=== PATIENT | female | born 1950 | race African-American/Black ===

== ENCOUNTER 2019-05-14 12:25 | Emergency (ER) | payer BC ==
--- NOTE | 2019-05-14 13:48 | ER ---
Nurse's Notes [facility] Name: Nicole Gimenez Age: 68 yrs Sex: Female : 1950 Arrival Date: 05/14/2019 Time: 12:26 Bed 11 Private MD: Gualberto Johns Diagnosis: Impacted cerumen, right ear Presentation: 05/14 12:36 Presenting complaint: Patient states: right ear pain for a couple days. Transition of la1 care: patient was not received from another setting of care. Onset of symptoms was May 14, 2019. Risk Assessment: Do you want to hurt yourself or someone else? Patient reports no desire to harm self or others. Initial Sepsis Screen: Does the patient meet any 2 criteria? No. Patient's initial sepsis screen is negative. Does the patient have a suspected source of infection? No. Patient's initial sepsis screen is negative. Care prior to arrival: None. 12:36 Method Of Arrival: Ambulatory la1 12:36 Acuity: OLEGARIO 4 la1 Historical: - Allergies: 12:36 Codeine; la1 12:36 Iodinated Contrast Media - IV Dye; la1 - PMHx: 12:36 High Cholesterol; Hypertension; la1 - Immunization history:: Adult Immunizations up to date. - Social history:: Smoking status: Patient/guardian denies using tobacco. - Ebola Screening: : No symptoms or risks identified at this time. Screenin:38 Abuse screen: Denies threats or abuse. Nutritional screening: No deficits noted. la1 Tuberculosis screening: No symptoms or risk factors identified. Fall Risk None identified. Assessment: 12:37 General: Appears in no apparent distress. Behavior is calm, cooperative. Pain: la1 Complains of pain in right ear. Neuro: Level of Consciousness is awake, alert, obeys commands, Oriented to person, place, time, situation. Cardiovascular: Capillary refill < 3 seconds Patient's skin is warm and dry. Respiratory: Airway is patent Respiratory effort is even, unlabored, Respiratory pattern is regular, symmetrical. GI: No signs and/or symptoms were reported involving the gastrointestinal system. : No signs and/or symptoms were reported regarding the genitourinary system. EENT: Pinna with no deformity noted on left ear and right ear. Vital Signs: 12:36 BP 155 / 61; Pulse 74; Resp 16; Temp 98.7; Pulse Ox 98% on R/A; Weight 70.76 kg; Height la1 4 ft. 11 in. (149.86 cm); 12:36 Body Mass Index 31.51 (70.76 kg, 149.86 cm) la1 ED Course: 12:26 Patient arrived in ED. as 12:26 Gualberto Johns MD is Private Physician. as 12:37 Triage completed. la1 12:37 Arm band placed on left wrist. la1 12:38 Patient has correct armband on for positive identification. la1 12:44 Neto Donaldson PA is PHCP. jr8 12:44 Daniele Pozo MD is Attending Physician. jr8 13:46 Gualberto Johns MD is Referral Physician. jr8 13:55 No provider procedures requiring assistance completed. Patient did not have IV access hb during this emergency room visit. Administered Medications: No medications were administered Outcome: 13:47 Discharge ordered by MD. jr8 13:55 Discharged to home ambulatory. hb 13:55 Condition: stable 13:55 Discharge instructions given to patient, Instructed on discharge instructions, follow up and referral plans. Demonstrated understanding of instructions, follow-up care. 13:55 Patient left the ED. hb Signatures: Kayli Palmer as Neto Donaldson PA PA jr8 Rey John RN RN la1 Risa Geiger RN RN hb
--- NOTE | 2019-05-14 13:48 | EDPHYS ---
Physician Documentation [facility] Name: Nicole Gimenez Age: 68 yrs Sex: Female : 1950 Arrival Date: 05/14/2019 Time: 12:26 Bed 11 Private MD: Gualberto Johns ED Physician Daniele Pozo Historical: - Allergies: 05/14 12:36 Codeine; la1 12:36 Iodinated Contrast Media - IV Dye; la1 - PMHx: 12:36 High Cholesterol; Hypertension; la1 - Immunization history:: Adult Immunizations up to date. - Social history:: Smoking status: Patient/guardian denies using tobacco. - Ebola Screening: : No symptoms or risks identified at this time. Vital Signs: 12:36 BP 155 / 61; Pulse 74; Resp 16; Temp 98.7; Pulse Ox 98% on R/A; Weight 70.76 kg; Height la1 4 ft. 11 in. (149.86 cm); 12:36 Body Mass Index 31.51 (70.76 kg, 149.86 cm) la1 MDM: 13:02 Patient medically screened. jr8 13:46 Data reviewed: vital signs, nurses notes, and as a result, I will discharge patient. jr8 Data interpreted: Pulse oximetry: on room air is 98 %. Interpretation: normal. Counseling: I had a detailed discussion with the patient and/or guardian regarding: the historical points, exam findings, and any diagnostic results supporting the discharge/admit diagnosis, the need for outpatient follow up, a family practitioner, to return to the emergency department if symptoms worsen or persist or if there are any questions or concerns that arise at home. Response to treatment: the patient's symptoms have resolved after treatment. Administered Medications: No medications were administered Disposition: 14:49 Co-signature as Attending Physician, Daniele Pozo MD. rn Disposition: 05/14/19 13:47 Discharged to Home. Impression: Impacted cerumen, right ear. - Condition is Stable. - Discharge Instructions: Earwax Buildup, Adult, Ear Irrigation. - Medication Reconciliation Form, Thank You Letter, Antibiotic Education, Prescription Opioid Use form. - Follow up: Gualberto Johns MD; When: As needed; Reason: Recheck today's complaints, Continuance of care, Re-evaluation by your physician. - Problem is new. - Symptoms are resolved. Signatures: Daniele Pozo MD MD rn Neto Donaldson PA PA jr8 Rey John RN RN la1 Risa Geiger RN RN Corrections: (The following items were deleted from the chart) 13:55 13:47 05/14/2019 13:47 Discharged to Home. Impression: Impacted cerumen, right ear. hb Condition is Stable. Forms are Medication Reconciliation Form, Thank You Letter, Antibiotic Education, Prescription Opioid Use. Follow up: Gualberto Johns; When: As needed; Reason: Recheck today's complaints, Continuance of care, Re-evaluation by your physician. Problem is new. Symptoms are resolved. jr8
[2019-05-14 14:00] VITALS: BP 155/61; TEMP 98.7; O2SAT 98
== END 2019-05-14 13:55 | disposition home or self-care (01) ==
LOC: ER 12:25
DX: H61.21 Impacted cerumen, right ear (principal); Z88.6 Allergy status to analgesic agent; Z91.09 Other allergy status, other than to drugs and biological substances
CPT/HCPCS: 99281

== ENCOUNTER 2025-04-02 03:02 | Emergency (ER) | payer OTHER ==
[2025-04-02] MEDS ORDERED: IBUPROFEN 200 MG TAB PO ONE (03:40)
[2025-04-02] MEDS ORDERED: ACETAMINOPHEN 500 MG TAB ONE (03:40)
--- NOTE | 2025-04-02 06:22 | RAD REPORT ---
EXAM: XR Right Shoulder Complete, 2 or More Views CLINICAL HISTORY: The patient is 74 years old and is Female; PAIN TECHNIQUE: Two views of the right shoulder. COMPARISON: No relevant prior studies available. FINDINGS: Bones/joints: No effusion or significant arthropathy. No acute fracture. No dislocation. Soft tissues: Unremarkable. IMPRESSION: No acute findings in the right shoulder. Electronically signed by: Opal Portillo MD 04/02/2025 06:17 AM CDT RP V2 Due to temporary technical issues with the PACS/[employer] reporting system, reports are being aline d by the in-house radiologist without review as a courtesy to ensure prompt reporting. The interpreting radiologist is fully responsible for the content of the report. Transcribed Date/Time: 04/02/2025 6:21 AM
--- NOTE | 2025-04-02 06:23 | RAD REPORT ---
EXAM: XR Right Humerus, 2 or More Views CLINICAL HISTORY: The patient is 74 years old and is Female; PAIN TECHNIQUE: Two views of the right humerus. COMPARISON: No relevant prior studies available. FINDINGS: Artifacts: External artifact. Bones/joints: No acute fracture or dislocation. Soft tissues: Unremarkable. IMPRESSION: No acute findings in the right humerus. Due to temporary technical issues with the PACS/[employer] reporting system, reports are being aline d by the in-house radiologist without review as a courtesy to ensure prompt reporting. The interpreting radiologist is fully responsible for the content of the report. Transcribed Date/Time: 04/02/2025 6:22 AM
--- NOTE | 2025-04-02 06:37 | ER ---
Nurse's Notes [facility] Name: Nicole Gimenez Age: 74 yrs Sex: Female : 1950 Arrival Date: 04/02/2025 Time: 03:02 Bed 5 Private MD: Diagnosis: Pain in right upper arm Presentation: 04/02 03:15 Chief complaint: Patient states: right arm pain that has been ongoing for 2 weeks. cp4 Coronavirus screen: Client denies travel out of the [place] in the last 14 days. At this time, the client does not indicate any symptoms associated with coronavirus-19. Ebola Screen: Patient negative for fever greater than or equal to 101.5 degrees Fahrenheit, and additional compatible Ebola Virus Disease symptoms Patient denies exposure to infectious person. Patient denies travel to an Ebola-affected area in the 21 days before illness onset. No symptoms or risks identified at this time. Initial Sepsis Screen: Does the patient meet any 2 criteria? HR > 90 bpm. No. Patient's initial sepsis screen is negative. Does the patient have a suspected source of infection? No. Patient's initial sepsis screen is negative. Risk Assessment: Do you want to hurt yourself or someone else? Patient reports no desire to harm self or others. Onset of symptoms was March 19, 2025. 03:15 Method Of Arrival: Ambulatory 4 03:15 Acuity: OLEGARIO 4 cp4 Triage Assessment: 03:16 General: Appears in no apparent distress. uncomfortable, Behavior is calm, cooperative, cp4 appropriate for age. Pain: Complains of pain in right arm Pain does not radiate. Pain currently is 8 out of 10 on a pain scale. EENT: No signs and/or symptoms were reported regarding the EENT system. Neuro: Level of Consciousness is awake, alert, obeys commands, Oriented to person, place, time, situation. Cardiovascular: Patient's skin is warm and dry. Respiratory: Airway is patent Respiratory effort is even, unlabored. GI: No signs and/or symptoms were reported involving the gastrointestinal system. : No signs and/or symptoms were reported regarding the genitourinary system. Derm: No signs and/or symptoms reported regarding the dermatologic system. Musculoskeletal: Reports pain in right arm. Historical: - Allergies: 03:16 Codeine; cp4 03:16 Iodinated Contrast Media - IV Dye; cp4 - PMHx: 03:16 High Cholesterol; Hypertension; Diabetes mellitus; cp4 - Immunization history:: Adult Immunizations up to date. - Infectious Disease History:: Denies. - Social history:: Smoking status: Patient denies any tobacco usage or history of. Screenin:18 [facility] ED Fall Risk Assessment (Adult) History of falling in the last 3 months, cp4 including since admission No falls in past 3 months (0 pts) Confusion or Disorientation No (0 pts) Intoxicated or Sedated No (0 pts) Impaired Gait No (0 pts) Mobility Assist Device Used No (0 pt) Altered Elimination No (0 pt) Score/Fall Risk Level 0 - 2 = Low Risk Oriented to surroundings, Maintained a safe environment, Assessed \T\ reinforced patient's understanding of fall precautions, Hourly rounding (assess needs \T\ fall precautionary measures) done. Abuse screen: Denies threats or abuse. Denies injuries from another. Nutritional screening: No deficits noted. Tuberculosis screening: No symptoms or risk factors identified. Never had TB. Assessment: 03:18 Reassessment: No changes from previously documented assessment. cp4 05:53 Reassessment: Patient appears in no apparent distress at this time. No changes from lg3 previously documented assessment. Patient and/or family updated on plan of care and expected duration. Pain level reassessed. Patient is alert, oriented x 3, equal unlabored respirations, skin warm/dry/pink. Vital Signs: 03:15 BP 191 / 82; Pulse 93; Resp 18; Temp 98.1; Pulse Ox 98% ; Weight 68.95 kg; Height 4 ft. cp4 11 in. ; Pain 8/10; 05:53 BP 188 / 89; Pulse 92; Resp 17 S; Pulse Ox 98% on R/A; lg3 03:15 Body Mass Index 30.70 (68.95 kg, 149.86 cm) cp4 03:15 Pain Scale: Adult cp4 ED Course: 03:06 Patient arrived in ED. mr 03:12 Vinicio Rizvi DO is Attending Physician. tt7 03:16 Triage completed. cp4 03:16 Arm band placed on right wrist. Patient placed in waiting room. cp4 03:18 Bed in low position. Call light in reach. Provided Education on:. cp4 03:18 No provider procedures requiring assistance completed. cp4 03:47 X-ray completed. Portable x-ray completed in exam room. Patient tolerated procedure md2 well. 04:03 XRAY Shoulder RIGHT 2 view In Process Unspecified. EDMS 04:03 XRAY Humerus RIGHT In Process Unspecified. EDMS 04:05 Radiology exam delayed due to called out ultrasound at 0405, call tech states the md2 morning tech will be here at 0630. 06:51 Patient did not have IV access during this emergency room visit. mf3 Administered Medications: 03:45 Drug: Acetaminophen PO 1000 mg PO once Route: PO; cp4 04:34 Follow up: Response: No adverse reaction; Pain is decreased cp4 03:45 Drug: Ibuprofen PO 600 mg PO once Route: PO; cp4 04:34 Follow up: Response: No adverse reaction; Temperature is decreased cp4 06:44 Drug: HYDROcodone-acetaminophen PO 5 mg-325 mg 1 tabs PO once Route: PO; cp4 06:44 Follow up: Response: No adverse reaction; Pain is decreased cp4 Medication: 03:18 VIS not applicable for this client. cp4 Outcome: 06:36 Discharge ordered by . tt7 06:51 Discharged to home with family, 3 06:51 Condition: stable 06:51 Discharge instructions given to patient, Instructed on discharge instructions, follow up and referral plans. Demonstrated understanding of instructions, follow-up care, 06:51 Patient left the ED. 3 Signatures: Dispatcher [employer] EDIN Jeannie Bender, Luz Elena Vogel RN RN 3 Pina Sylvester md2 Joelle De La Rosa cp4 Nelly Lozada RN RN 3 Vinicio Rizvi DO DO tt7
--- NOTE | 2025-04-02 06:37 | EDPHYS ---
Physician Documentation [facility] Name: Nicole Gimenez Age: 74 yrs Sex: Female : 1950 Arrival Date: 04/02/2025 Time: 03:02 Bed 5 Private MD: ED Physician Vinicio Rizvi HPI: 04/02 07:46 This 74 yrs old Black Female presents to ER via Ambulatory with complaints of Arm Pain. tt7 07:46 The patient or guardian complains of pain, that is acute. The complaints affect the tt7 right bicep and right tricep. Context: The problem was sustained at home, resulted from unknown cause. Onset: The symptoms/episode began/occurred gradually, today. Treatment prior to arrival includes: no previous treatment. Modifying factors: The symptoms are alleviated by nothing. the symptoms are aggravated by movement. Associated signs and symptoms: The patient has no apparent associated signs or symptoms. The patient has not experienced similar symptoms in the past. The patient has not recently seen a physician. Historical: - Allergies: 03:16 Codeine; cp4 03:16 Iodinated Contrast Media - IV Dye; cp4 - PMHx: 03:16 High Cholesterol; Hypertension; Diabetes mellitus; cp4 - Immunization history:: Adult Immunizations up to date. - Infectious Disease History:: Denies. - Social history:: Smoking status: Patient denies any tobacco usage or history of. ROS: 07:43 Constitutional: negative for fever. Cardiovascular: negative for chest pain. tt7 Respiratory: negative for shortness of breath. Abdomen/GI: negative for abdominal pain, nausea, vomiting, diarrhea. 07:43 MS/extremity: Positive for pain, Negative for injury or acute deformity, decreased range of motion, paresthesias, warmth, Exam: 07:44 Constitutional: vital signs reviewed, well appearing. Head/Face: normocephalic, tt7 atraumatic. Eyes: no conjunctival injection, anicteric sclerae. ENT: mucus membranes moist. Neck: trachea midline, no JVD, no meningismus. Chest/axilla: normal chest wall appearance and motion, nontender, no crepitus. Cardiovascular: regular rate and rhythm, no murmurs, no rubs, no lower extremity edema. Respiratory: normal respiratory effort, no accessory muscle use, lungs CTAB. Abdomen/GI: Nondistended Back: normal ROM. Skin: warm, dry, intact, normal turgor, normal color, no rash. MS/ Extremity: normal ROM of extremities, no gross deformities, tenderness of the right mid bicep without any erythema, edema, or palpable cordlike structure. Neuro: alert and oriented with appropriate mental status, normal speech, follows commands, no focal neurologic deficits. Psych: appropriate mood and affect. 07:45 MS/ Extremity: 2+ right radial and ulnar pulse, no sensory deficit to the distal right tt7 upper extremity, no motor deficit to the distal right upper extremity Vital Signs: 03:15 BP 191 / 82; Pulse 93; Resp 18; Temp 98.1; Pulse Ox 98% ; Weight 68.95 kg; Height 4 ft. cp4 11 in. ; Pain 8/10; 05:53 BP 188 / 89; Pulse 92; Resp 17 S; Pulse Ox 98% on R/A; lg3 03:15 Body Mass Index 30.70 (68.95 kg, 149.86 cm) cp4 03:15 Pain Scale: Adult cp4 MDM: 03:12 Medical Screening Exam initiated tt7 07:46 Differential diagnosis: dislocation, closed fracture, contusion, tendonitis. Data tt7 reviewed: vital signs, nurses notes, radiologic studies, plain films. Independent interpretation of the following test(s) in the Emergency Department X-Ray: My interpretation is No acute osseous abnormality or dislocation seen on x-ray imaging of the right shoulder and humerus. Test considered but Not performed: Ultrasound . MRI: . Historians other than the Patient: Spouse/Significant Other: . ED course: Well-appearing 74-year-old female with a right arm pain, vital signs are stable, hypertensive but has history of chronic hypertension, physical exam is reassuring, neurovascularly intact distally, no obvious injury or deformity, x-ray imaging obtained of the right shoulder and humerus, no acute osseous abnormalities seen, patient was given pain medications, D-dimer was obtained and negative, this rules out DVT, patient has no risk factors for DVT, emergency department evaluation is reassuring. I do not suspect life-threatening process. Patient is stable and not in need of emergent medical intervention. I had a detailed discussion with the patient regarding the historical points, exam findings, emergency department evaluation, diagnostic results, and the discharge diagnosis. I discussed outpatient management of the patient's condition. I discussed the need for outpatient follow-up with primary care and relevant specialist. I discussed return precautions including the need to return to the ED if symptoms do not improve, worsen, or if there are any questions or concerns that arise at home. The patient was discharged in stable condition. 04/02 03:34 Order name: D-Dimer; Complete Time: 04:43 tt7 04/02 03:34 Order name: XRAY Shoulder RIGHT 2 view tt7 04/02 03:34 Order name: XRAY Humerus RIGHT tt7 04/02 06:51 Order name: Sling; Complete Time: 06:51 3 Administered Medications: 03:45 Drug: Acetaminophen PO 1000 mg PO once Route: PO; cp4 04:34 Follow up: Response: No adverse reaction; Pain is decreased cp4 03:45 Drug: Ibuprofen PO 600 mg PO once Route: PO; cp4 04:34 Follow up: Response: No adverse reaction; Temperature is decreased cp4 06:44 Drug: HYDROcodone-acetaminophen PO 5 mg-325 mg 1 tabs PO once Route: PO; cp4 06:44 Follow up: Response: No adverse reaction; Pain is decreased cp4 Disposition: 07:48 Co-signature as Attending Physician, Vinicio Rizvi DO. tt7 Disposition Summary: 04/02/25 06:36 Discharge Ordered Notes: Location: Home tt7 Problem: new tt7 Symptoms: have improved tt7 Condition: Stable tt7 Diagnosis - Pain in right upper arm tt7 Followup: tt7 - With: Emergency Department - When: As needed - Reason: Followup: tt7 - With: Private Physician - When: 1 - 2 days - Reason: Recheck today's complaints, Re-evaluation by your physician Discharge Instructions: - Discharge Summary Sheet tt7 - Musculoskeletal Pain tt7 Forms: - Medication Reconciliation Form tt7 - Antibiotic Education tt7 - Prescription Opioid Use tt7 - Patient Portal Instructions tt7 - Leadership Thank You Letter tt7 Signatures: Dispatcher [facility] Joelle Luis cp4 Nelly Lozada RN RN mf3 Vinicio Rizvi DO DO tt7 Corrections: (The following items were deleted from the chart) 03:34 03:34 Extremity Venous Uni Ltd+US.RAD.BRZ ordered. EDMS EDMS 03:34 03:34 D-DIMER+COAG.LAB.BRZ ordered. EDMS EDMS 03:34 03:34 Shoulder Right 2 View+RAD.RAD.BRZ ordered. EDMS EDMS 03:34 03:34 Humerus Right+RAD.RAD.BRZ ordered. EDMS EDMS
[2025-04-02] MEDS ORDERED: HYDROCODONE/APAP 5/325 MG TAB ONE (06:41)
[2025-04-02 07:36] VITALS: TEMP 98.1; O2SAT 98
[2025-04-02 07:42] VITALS: BP 188/89
== END 2025-04-02 06:51 | disposition home or self-care (01) ==
LOC: ER 03:02
DX: M79.621 Pain in right upper arm (principal); E11.9 Type 2 diabetes mellitus without complications; Z88.0 Allergy status to penicillin; Z91.041 Radiographic dye allergy status
CPT/HCPCS: 36415; 85379; 99283